=== PATIENT | female | born 1970 | race Caucasian/White ===

== ENCOUNTER 2016-06-27 11:43 | Emergency (ER) | payer BC ==
[~2016-06-27] VITALS: Ht 160 cm; Wt 63.5 kg
[2016-06-27] MEDS ORDERED: KETOROLAC TROMETHAMINE INJ 30 MG/ML VIAL ONE (12:25)
[2016-06-27] MEDS ORDERED: ONDANSETRON HCL/PF 4 MG/2 ML VIAL ONE (12:25)
[2016-06-27] MEDS ORDERED: IV SET PRIMARY PUMP SET 1 EA INFUS.SET MC ONE ×3 (12:25→14:54)
[2016-06-27] MEDS ORDERED: IV NS 0.9% 2,000 ML ONE (12:25)
[2016-06-27] MEDS ORDERED: KETOROLAC TROMETHAMINE INJ 30 MG/ML VIAL IV ONE (12:30)
[2016-06-27] MEDS ORDERED: ONDANSETRON HCL/PF 4 MG/2 ML VIAL IVP ONE (12:30)
[2016-06-27] MEDS ORDERED: IV NS 0.9% 1,000 ML BAG IV ONE ×3 (12:30→15:00)
[2016-06-27 12:36] LABS: BASOPHILS # (AUTO) 0.5 /CMM (0.0-0.2); BASOPHILS % (AUTO) 2.7 % (0.0-2.0); DIFF TOTAL % 100 %; EOSINOPHILS # (AUTO) 0.2 /CMM (0.0-0.7); EOSINOPHILS % (AUTO) 0.9 % (0.0-6.0); HEMATOCRIT 41 % (33-45); HEMOGLOBIN 13.5 g/dL (11.5-14.8); LYMPHOCYTES # (AUTO) 0.6 /CMM (0.8-4.8); LYMPHOCYTES % (AUTO) 3.3 % (20.0-44.0); MEAN CORPUSCULAR HEMOGLOBIN 32 PG (26.0-33.0); MEAN CORPUSCULAR HGB CONC 33 g/dl (31.0-36.0); MEAN CORPUSCULAR VOLUME 94 fL (82-100); MONOCYTES # (AUTO) 0.4 /CMM (0.1-1.30); MONOCYTES % (AUTO) 1.9 % (2.0-12.0); NEUTROPHILS # (AUTO) 17.4 /CMM (1.8-8.9); NEUTROPHILS % (AUTO) 91.2 % (43.0-81.0); PLATELET COUNT (AUTO) 208 /CMM (150-450); WHITE BLOOD COUNT (AUTO) 19.1 K/uL (4.3-11.0)
[2016-06-27 12:48] LABS: CALCIUM, SERUM 8.8 mg/dL (8.5-10.1); CREATININE 0.7 mg/dL (0.6-1.3); POTASSIUM 4.1 mmol/L (3.5-5.1)
[2016-06-27 12:57] LABS: ALBUMIN 3.5 g/dL (3.4-5.0); BILIRUBIN,DIRECT 0.1 mg/dL (0.0-0.2); BILIRUBIN,TOTAL 0.4 mg/dL (0.2-1.0); INDIRECT BILIRUBIN 0.3 mg/dL (0.0-1.1); LACTIC ACID 1.2 mmol/L (0.4-2.0); TOTAL PROTEIN, SERUM 6.8 g/dL (6.4-8.2)
[2016-06-27 13:00] LABS: KETONES,URINE Negative (NEGATIVE); LEUKOCYTE ESTERASE ,URINE Small (NEGATIVE)
[2016-06-27 13:01] LABS: PREGNANCY TEST URINE QUAL NEGATIVE (NEGATIVE)
[2016-06-27 13:02] LABS: ADD UA MICROSCOPIC YES; PH,URINE >9.0 (5.0-8.0)
[2016-06-27 13:11] LABS: ADD URINE CULTURE NO
[2016-06-27] MEDS: CEFTRIAXONE 1GM BAG (ER ONLY) 1 GM/50 ML PIGGYBACK IV ONE ×2 (14:00→14:14)
[2016-06-27] MEDS ORDERED: ACETAMINOPHEN 325 MG TABLET PO ONE (14:00)
[2016-06-27] MEDS ORDERED: IV SET PRIMARY 1 EA INFUS.SET MC ONE (14:05)
[2016-06-27] MEDS ORDERED: CEFTRIAXONE 1GM BAG (ER ONLY) 50 ML IV ONE (14:05)
[2016-06-27] MEDS ORDERED: ACETAMINOPHEN 325 MG TABLET ONE (14:05)
[2016-06-27] MEDS ORDERED: IV NS 0.9% 1,000 ML ONE (14:54)
[2016-06-27 16:02] VITALS: BP 100/53
== END 2016-06-27 16:03 | disposition home or self-care (01) ==
LOC: ER 11:50
DX: N10 Acute pyelonephritis (principal)
CPT/HCPCS: 36415; 80048; 80076; 81001; 83605; 83690; 84703; 85025; 87040 ×2; 87086; 96361; 96365; 96375; 99284; A4606; J0696; J1885; J2405; J7030 ×2; Z7610; 81000-TC